=== PATIENT | female | born 1960 | race Hispanic/Latino ===

== ENCOUNTER 2017-04-27 06:54 | Day surgery (SDC) | payer BC, OTHER ==
[2017-03-27 10:48] VITALS: BMI 41.1
[2017-04-27] MEDS ORDERED: Lactated Ringer's 1,000 ML IV ONE ×2 (07:34)
[2017-04-27] MEDS ORDERED: Sodium Citrate/Citric Acid 15 ml Sol ONE (07:50)
[2017-04-27] MEDS ORDERED: Midazolam 2 MG/2 ML VIAL ONE (08:03)
[2017-04-27] MEDS ORDERED: Propofol 10 mg/ml Inj (20 ML) ONE (08:03)
[2017-04-27] MEDS ORDERED: ceFAZolin IV 1 gm in Dextrose 1 GM/50 ML BAG IVPB ONE (09:22)
[2017-04-27] MEDS ORDERED: Sodium Chloride 0.9% 3,000 ML IV ONE (09:30)
[2017-04-27] MEDS ORDERED: HYDROmorphone 0.5 mg/0.5 ml ISec IVP PRN (09:55)
--- NOTE | 2017-04-27 10:20 | PCM.SURG1 ---
Surgeon's Initial Post Op Note - Surgeon's Notes Surgeon: sanjana rivas md Certified Pedorthotist: none Type of Anesthesia: General Endo Pre-Operative Diagnosis: endometrial polyps Operative Findings: endometrial polyps x2. Detailed operative report. following proper consent, pt takento the operative room. placed in dorsal lithotomy position, legs placed in adjustable marquez stirups. prepped and drapped in sterile fashion for hysteroscopy. cervix was grasped and dilated to allow a hysteroscope. survey of the endometrial cavity indicated polyps 2. myosure advanced with no difficulty. polyps resected and sent to pathology. fluid used for the procedure was NS. fluid deficit was 200 cc. pt toleraeted the procedure well and taken to recovery room in stable condition. Post-Operative Diagnosis: endometrial polyps Operation Performed: hysteroscopic resection of polyps, myosure procedure Specimen/Specimens Removed: polyps Estimated Blood Loss: EBL {In ML}: 5 Blood Products Given: N/A Drains Used: No Drains Post-Op Condition: Good Date of Surgery/Procedure: 04/27/17 Time of Surgery/Procedure: 10:15
[2017-04-27 10:50] VITALS: RESP 15
[2017-04-27 11:21] VITALS: BP 114/61; PULSE 86; TEMP 97.8; O2SAT 96
[2017-04-27] MEDS ORDERED: Oxycodone/Acetaminophen 5/325 mg Tab PO PRN (11:29)
== END 2017-04-27 11:19 | disposition home or self-care (01) ==
LOC: C.SDS 06:54
PROVIDERS: ATTEND Obstetrics & Gynecology
DX: N84.0 Polyp of corpus uteri (principal)
CPT/HCPCS: 58558; 88305; J0690; J2250; J2704; J3010; J7040; J7120